=== PATIENT | female | born 1965 | race Caucasian/White ===

== ENCOUNTER 2018-02-06 08:53 | Inpatient (IN) | payer OTHER ==
[~2018-02-06] VITALS: Ht 149.9 cm; Wt 98.0 kg
[~2018-02-06 08:53] MED LIST: APR50 PO; ARTIFICIAL TEAR15 M7 OP; ATA25 PO; BUM1 PO; COL100 PO; FOL1 PO; INS7030 SC; INSR SC; KENC TOP; L40 PO; LOT1C TOP; PHOS PO; PRI20 PO; PRO20I IV; SOD650 PO; TYL650S PR
[2018-02-06 08:59] VITALS: Ht 149.9 cm; Wt 98.0 kg
--- NOTE | 2018-02-06 09:29 | NUR ---
PATIENT BROUGHT IN BY [facility] FOR C/O FEELING SOB AND ABDOMINAL DISTENSION SINCE THIS MORNING. PER OCCUPATIONAL HEALTH PHYSIOTHERAPIST, PATIENT IS ON DIALYSIS AND REFUSED DIALYSIS YESTERDAY BECAUSE SHE WAS UPSET WITH HER CELL MATE. STATES SHE IS UNABLE TO PRODUCE URINE. PATIENT REPORTS FEELING SOB, CHEST PRESSURE WITH BREATHING, AND ABDOMINAL DISTENSION. AAOX4, TALKING AND RESPONDING APPROPRIETLY. PEREZ HEARD ON BILATERAL LUNG BASES, AND PATIENT HAVING SOME LABORED BREATHING, PLACED ON 2L OXYGEN VIA NC. HAS SHUNT ON LEFT UPPER ARM, THRILL FELT AND BRUIT HEARD. PATEINT PLACED ON SHEETROCK APPLICATOR, SIDE RAILS UP, GARDS AT BEDSIDE.
[2018-02-06] MEDS ORDERED: MYCOC (09:44)
[2018-02-06] MEDS ORDERED: PROMETHAZI6.25 MG/5 PO (09:45)
[2018-02-06] MEDS ORDERED: NOR10 PO (09:45)
[2018-02-06] MEDS ORDERED: LACTULOSE10 GM/152 PO (09:47)
[2018-02-06] MEDS ORDERED: MINOXIDIL2.5 MG DE (09:48)
[2018-02-06] MEDS ORDERED: VIS25 PO (09:49)
[2018-02-06] MEDS ORDERED: RENVELA800 M1 PO (09:51)
[2018-02-06 10:15] LABS: BASOPHIL % 0.6 % (0-2); PLATELET COUNT 236 x10^3mcL (130-400)
[2018-02-06 10:17] LABS: RED CELL DISTRIBUTION WIDTH 14.8 % (11.5-14.5)
[2018-02-06 10:28] LABS: ALBUMIN 3.8 g/dL (3.4-5.0); BILIRUBIN TOTAL 0.5 mg/dL (0.20-1.00); CALCIUM 9.1 mg/dL (8.5-10.1); POTASSIUM SERUM 5.1 mmol/L (3.5-5.1); TOTAL PROTEIN, SERUM 7.8 g/dL (6.4-8.2)
[2018-02-06 10:31] LABS: CREATININE SERUM 6.3 mg/dL (0.6-1.0)
--- NOTE | 2018-02-06 10:40 | NUR ---
PATIENT HAD ONE EPISODE OF WATERY STOOL. APROX 200ML OUTPUT.
--- NOTE | 2018-02-06 11:45 | NUR ---
PT RECEIVED FROM ER AWAKE, ALERT AND ORIENTED. CAME IN FROM [facility] WITH C/O SOB AFTER MISSING HD YESTERDAY. PT STATED HAVING ARGUMENT WITH ROOM MATE AND WAS UPSET. NO ACUTE RESP. DISTRESS NOTED, MILD SOB WITH ACTIVITIES. PT PLACED ON O2 2L N/C SATS 98%. BP ELEVETED, PT MEDICATED IN ER PER REPORT. HL PATENT. NO C/O PAIN OR DISCOMFORT AT THIS TIME. [facility] GUARDS AT BEDSIDE. CALL LIGHT WITHIN REACH. WILL CONTINUE W/PLAN OF CARE.
[2018-02-06 12:16] VITALS: BP 172/95
--- NOTE | 2018-02-06 13:54 | NUR ---
DR. PALOMARES AWARE OF ELEVETED BP, CONT. TO MONITOR AND RE-ASSESS NEEDED.
[2018-02-06 16:09] VITALS: BP 186/85
--- NOTE | 2018-02-06 18:16 | NUR ---
PT C/O CONSTIPATION, LACTULOSE GIVEN.
--- NOTE | 2018-02-06 18:58 | NUR ---
HEMODIALYSIS IN PROGRESS, PT REMAINS IN NO DISTRESS, AWAKE AND ALERT. NO C/O PAIN OR DISCOMFORT AT THIS TIME. [facility] GUARDS AT BEDSIDE. CALL LIGHT WITHIN REACH. WILL BE ENDORSED TO INCOMING SHIFT.
--- NOTE | 2018-02-06 20:00 | NUR ---
RECEIVED PT IN BED, WITH HEMODIALYSIS IN PROGRESS. DIALYSIS NURSE AT THE BEDSIDE.AV SHUNT TO YULIYA. PT ALERT AND ORIENTED.RESP. EVEN AND UNLABORED. ON ROOM AIR AT THIS TIME, DENIES SOB. NO ACUTE DISTRESS NOTED. . SR ON THE MONITOR, DENIES CP. HL TO RW, INTACT AND PATENT. GAURDS AT THE BEDSIDE. NO COMPLAINTS NOTED AT THIS TIME. CALL LIGHT WITHIN REACH. WILL CONTINUE TO MONITOR.
[2018-02-06 21:13] VITALS: BP 192/85
--- NOTE | 2018-02-06 21:20 | NUR ---
B/P READING SHOWS 192/85, APRESOLINE PO GIVEN ORDERED. WILL CONTINUE TO MONITOR.
--- NOTE | 2018-02-06 22:00 | NUR ---
HEMODIALYSIS COMPLETED BY DIALYSIS NURSE. WILL CONTINUE TO MONITOR.
--- NOTE | 2018-02-06 22:35 | NUR ---
APPEARS ANXIOUS, ATIVAN PO GIVEN ORDERED. WILL CONTINUE TO MONITOR.
--- NOTE | 2018-02-06 23:30 | NUR ---
B/P RECHECK SHOWS 173/89 AT THIS TIME. WILL CONTINUE TO MONITOR.
[2018-02-07 00:37] VITALS: BP 173/89
--- NOTE | 2018-02-07 03:48 | NUR ---
COMPLAINED OF HEADACHE, 6/, MEDICATED WITH TYLENOL PO ORDERED WITH RELIEF. WILL CONTINUE TO MONITOR.
--- NOTE | 2018-02-07 04:45 | NUR ---
NO COMPLAINTS NOTED AT THIS TIME. RESP. EVEN AND UNLABORED. 02 AT 2L/MIN NC, NO ACUTE DISTRESS NOTED. GUARDS AT THE BEDSIDE. WILL CONTINUE TO MONITOR.
[2018-02-07 05:37] VITALS: BP 171/77
--- NOTE | 2018-02-07 06:24 | NUR ---
DUE MEDS GIVEN ORDERED, KIMBERLY. WELL. AFEBRILE AND VITAL SIGNS STABLE. RESP. EVEN AND UNLABORED. NO ACUTE DISTRESS NOTED. REMAINS SR ON THE MONITOR, DENIES CP OR PRESSURE.COMPLAINED OF HEADACHE ,MEDICATED WITH NORCO ORDERED. AV SHUNT TO YULIYA, DRESSING DRY AND INTACT. FOR HEMODIALYSIS THIS AM.GUARDS AT THE BEDSIDE. WILL ENDORSE TO INCOMING NURSE.
[2018-02-07 06:26] LABS: BASOPHIL % 0.8 % (0-2); PLATELET COUNT 226 x10^3mcL (130-400)
[2018-02-07 06:49] LABS: CALCIUM 8.6 mg/dL (8.5-10.1); CARBON DIOXIDE 25.6 mmol/L (21-32); MAGNESIUM 1.9 mg/dL (1.8-2.4); PHOSPHOROUS 4.3 mg/dL (2.5-4.9)
[2018-02-07 06:54] LABS: CREATININE SERUM 4.2 mg/dL (0.6-1.0)
[2018-02-07 06:57] LABS: RED CELL DISTRIBUTION WIDTH 15.1 % (11.5-14.5)
--- NOTE | 2018-02-07 07:30 | NUR ---
RECEIVED IN NO RESP. DISTRESS, AWAKE AND ALERT. NO C/O PAIN OR DISCOMFORT AT THIS TIME. CI[facility] GUARDS AT BEDSIDE. CALL LIGHT WITHIN REACH. WILL CONTINUE W/PLAN OF CARE.
[2018-02-07 08:03] VITALS: BP 127/54
[2018-02-07 12:06] VITALS: BP 140/62
--- NOTE | 2018-02-07 15:02 | NUR ---
HEMODIALYSIS COMPLETED, PT TOLERATED WELL. 3LITERS OUT. IN NO DISTRESS. DENIES PAIN OR DISCOMFORT. CIW GIARDS AT BEDSIDE.
[2018-02-07 16:14] VITALS: BP 130/56
--- NOTE | 2018-02-07 17:58 | NUR ---
PT REQUESTED LACTULOSE FOR NO CONSTIPATION. MEDS GIVEN
--- NOTE | 2018-02-07 18:40 | NUR ---
REMAINS IN NO DISTRESS, AWAKE AND ALERT. VS REMAINS WNL. HL PATENT. NO C/O PAIN OR DISCOMFORT AT THIS TIME. CI[facility] GUARDS AT BEDSIDE. CALL LIGHT WITHIN REACH. WILL BE ENDORSED TO INCOMING SHIFT.
--- NOTE | 2018-02-07 19:30 | NUR ---
RECEIVED PT FROM PREVIOUS SHIFT NURSE. PT AOX4. DENIES RICARDO/DIZZINESS. TELE #[id number], NSR, HR 82. DENIES CP/PRESSURE. PULSES PALPABLE, NO EDEMA NOTED. LUNG SOUNDS CLEAR, ON RA. DENIES SOB/DIFFICULTY BREATHING. BOWEL SOUNDS ACTIVE. VOIDS FREELY. AV SHUNT TO YULIYA NOTED. AMBULATORY WITH MIN. ASSIST. SKIN INTACT. IV TO R. WRIST, INTACT AND PATENT. BED IN LOWEST POSITION. CALL LIGHT WITHIN REACH. WILL CONTINUE TO MONITOR.
[2018-02-07 19:52] VITALS: BP 134/64
--- NOTE | 2018-02-08 03:00 | NUR ---
PT RESTING IN BED. RR EVEN AND UNLABORED. NO ACUTE DISTRESS NOTED. CALL LIGHT WITHIN REACH. BED IN LOWEST POSITION. WILL CONTINUE TO MONITOR.
[2018-02-08 04:41] VITALS: BP 110/59
[2018-02-08 06:26] LABS: CALCIUM 8.8 mg/dL (8.5-10.1); CARBON DIOXIDE 25.9 mmol/L (21-32); POTASSIUM SERUM 4.1 mmol/L (3.5-5.1)
[2018-02-08 06:39] LABS: BASOPHIL % 0.5 % (0-2); PLATELET COUNT 209 x10^3mcL (130-400)
--- NOTE | 2018-02-08 07:31 | NUR ---
RECEIVED AWAKE, ALERT AND ORIENTED. NO RESP. DISTRESS NOTED. NO C/O PAIN OR DISCOMFORT. CALL LIGHT WITHIN REACH. CI[facility] GUARDS AT BEDSIDE. WILL CONTINUE WITH PLAN OF CARE.
[2018-02-08 07:34] LABS: RED CELL DISTRIBUTION WIDTH 14.8 % (11.5-14.5)
[2018-02-08 08:31] VITALS: BP 133/60
--- NOTE | 2018-02-08 11:42 | NUR ---
PT C/O HEADACHE, MEDICATED WITH TYLENOL
[2018-02-08 12:20] VITALS: BP 143/63
[2018-02-08 15:01] VITALS: BP 143/63
[2018-02-08 16:28] VITALS: BP 142/65
--- NOTE | 2018-02-08 17:02 | NUR ---
PT WILL BE DC'D BACK TO [facility] THIS PM. DC INSTRUCTIONS REVIEWED WITH PT. NO RX GIVEN. HL REMOVED AND SITE/CATH INTACT. NO C/O PAIN OR DISCOMFORT AT THIS TIME. WAITING FOR RIDE BACK TO CORRECTION.
--- NOTE | 2018-02-08 18:12 | NUR ---
PT LEFT TO [facility] WITH NO RESP. DISTRESS. AWAKE AND ALERT. NO CHANGES IN VS. NO C/O PAIN OR DISCOMFORT. PERSONAL BELONGINGS TAKEN WITH PT.
== END 2018-02-08 17:52 | disposition other institution (70) | DRG 291 ==
LOC: ED 08:53 → DU 11:05
PROVIDERS: Emergency Medicine; Internal Medicine Nephrology; ADMIT Internal Medicine
DX: I13.2 Hypertensive heart and chronic kidney disease with heart failure and with stage 5 chronic kidney disease, or end stage renal disease (principal); N18.6 End stage renal disease; J96.01 Acute respiratory failure with hypoxia; J18.9 Pneumonia, unspecified organism; N25.81 Secondary hyperparathyroidism of renal origin; I50.9 Heart failure, unspecified; I16.0 Hypertensive urgency; E11.22 Type 2 diabetes mellitus with diabetic chronic kidney disease; D63.1 Anemia in chronic kidney disease; E78.5 Hyperlipidemia, unspecified; Z68.37 Body mass index [BMI] 37.0-37.9, adult; Z99.2 Dependence on renal dialysis; Z79.4 Long term (current) use of insulin
CPT/HCPCS: 82962; J1956; J7030; J7040; Q0092